=== PATIENT | female | born 1960 | race Caucasian/White ===

== ENCOUNTER → 2016-08-17 | Outpatient (CLI) | payer BC ==
--- NOTE | 2016-08-17 11:58 | REPMRS ---
Patient History The patient states she had a clinical breast exam in July 2016.Patient is postmenopausal. Family history of breast cancer in mother at age 50 or over. Benign excisional biopsy of the right breast, 1978. Vertical scar between both breast 2009 Digital Mammo Diagnostic Unilateral: Right Breast - August 17, 2016 - Exam #: [id number] CC and MLO view(s) were taken of the right breast. Technologist: Moni Larson, Technologist Prior study comparison: December 09, 2015, digital woman screen mammo, performed at [facility]. November 27, 2014, digital woman screen mammo, performed at [facility]. October 30, 2013, digital woman screen mammo, performed at [facility]. FINDINGS: There are scattered fibroglandular densities. There has been no change in the appearance of the right breast parenchyma in the interval since the prior examination. No mass, architectural distortion, or microcalcific cluster has developed. No suspicious finding. ASSESSMENT: BI-RADS/ACR category 2 mammogram. Benign finding(s). Recommendation Routine screening mammogram in 1 year. This mammogram was interpreted with the aid of an FDA-approved computer-aided dectection system. Electronically Signed By: Anderson Jovel MD 08/17/16 [id number]
== END ==
LOC: M RAD 11:31
PROVIDERS: ATTEND Nurse Practitioner Women's Health
DX: N64.4 Mastodynia (principal); Z78.0 Asymptomatic menopausal state; Z92.89 Personal history of other medical treatment; Z80.3 Family history of malignant neoplasm of breast

== ENCOUNTER → 2017-02-09 | Outpatient (CLI) | payer BC ==
--- NOTE | 2017-02-09 16:08 | REPMRS ---
Patient History The patient states she had a clinical breast exam in 02/11 Patient is postmenopausal. Family history of breast cancer in mother at age 50 or over. Benign excisional biopsy of the right breast, 1978. Digital Woman Screen Mammo: February 09, 2017 - Exam #: [id number] Bilateral CC and MLO view(s) were taken. Technologist: Michelle Tejada, Technologist Prior study comparison: August 17, 2016, right breast digital mammo diagnostic unilateral, performed at [facility]. December 09, 2015, digital woman screen mammo performed at [facility]. FINDINGS: The breast tissue is heterogeneously dense. This may lower the sensitivity of mammography. There has been no change in the appearance of the mammogram from the prior studies. There is a moderate amount of residual fibroglandular tissue which is fairly symmetric. There is no interval development of dominant mass, areas of architectural distortion, or clustered microcalcification typical of malignancy. ASSESSMENT: BI-RADS/ACR category 1 mammogram. Negative. Recommendation Routine screening mammogram in 1 year (for women over age 40). This patient's Lifetime Breast Cancer RIsk is estimated at 21.1%, therefore I would recommend supplemental MRI screening of the breasts. This mammogram was interpreted with the aid of an FDA-approved computer-aided dectection system. Electronically Signed By: Byron Whittaker MD 02/09/17 [id number]
== END ==
LOC: M WHC 14:50
PROVIDERS: ATTEND Nurse Practitioner Women's Health
DX: Z12.31 Encounter for screening mammogram for malignant neoplasm of breast (principal)

== ENCOUNTER → 2017-02-09 | Outpatient (REF) | payer BC | LOC: M SFHCWAGY 15:39 | PROVIDERS: ATTEND Nurse Practitioner Women's Health | DX: Z12.4 Encounter for screening for malignant neoplasm of cervix (principal) ==

== ENCOUNTER → 2017-08-03 | Outpatient (CLI) | payer BC ==
[~2017-08-03] MED LIST: PROHANCE 279.3MG/ML 15ML VIAL (A9576) As Ordered
== END ==
LOC: M RAD 10:07
DX: Z12.31 Encounter for screening mammogram for malignant neoplasm of breast (principal)
CPT/HCPCS: A9576